=== PATIENT | female | born 1995 | race Caucasian/White ===

== ENCOUNTER 2022-07-02 09:56 | Outpatient (CLI) | payer BC, SELFPAY | END 2022-07-02 09:57 | disposition home or self-care (01) | LOC: NFLDREF 07-03 17:23 | PROVIDERS: Visit Provider Student in an Organized Health Care Education/Training Program | DX: R30.0 Dysuria (principal); N39.0 Urinary tract infection, site not specified | CPT/HCPCS: 87086 ==